=== PATIENT | male | born 1945 | race Caucasian/White ===

== ENCOUNTER → 2022-04-29 | Day surgery (SDC) | payer OTHER, MEDICARE ==
[~2022-04-29] MED LIST: Ketamine 200 MG/20 ML MDV ONE; Propofol 200 MG/20 ML SDV ONE; fentaNYL 50 MCG/ML SDV ONE
[2022-04-29] MEDS: Lactated Ringers 1,000 ML IV SCH (08:31)
== END ==
LOC: CC.SDS 08:02
PROVIDERS: ATTEND Family Medicine
DX: Z12.11 Encounter for screening for malignant neoplasm of colon (principal); D12.3 Benign neoplasm of transverse colon; D12.0 Benign neoplasm of cecum; D12.5 Benign neoplasm of sigmoid colon; D12.7 Benign neoplasm of rectosigmoid junction; K57.30 Diverticulosis of large intestine without perforation or abscess without bleeding; N40.0 Benign prostatic hyperplasia without lower urinary tract symptoms; E78.5 Hyperlipidemia, unspecified; I10 Essential (primary) hypertension; E66.9 Obesity, unspecified; Z88.5 Allergy status to narcotic agent; Z86.010 Personal history of colon polyps; Z80.0 Family history of malignant neoplasm of digestive organs
CPT/HCPCS: 00812; 88305; J2704; J3010; J7120

== ENCOUNTER → 2023-01-06 | Day surgery (SDC) | payer OTHER, MEDICARE ==
[2023-01-06] MEDS: Lactated Ringers 1,000 ML IV SCH (07:42)
== END ==
LOC: CC.SDS 07:16
PROVIDERS: ATTEND Family Medicine
DX: Z12.11 Encounter for screening for malignant neoplasm of colon (principal); D12.2 Benign neoplasm of ascending colon; D12.3 Benign neoplasm of transverse colon; D12.5 Benign neoplasm of sigmoid colon; K57.30 Diverticulosis of large intestine without perforation or abscess without bleeding; N40.0 Benign prostatic hyperplasia without lower urinary tract symptoms; M19.90 Unspecified osteoarthritis, unspecified site; I10 Essential (primary) hypertension; E78.00 Pure hypercholesterolemia, unspecified; G62.9 Polyneuropathy, unspecified; Z88.5 Allergy status to narcotic agent; Z79.52 Long term (current) use of systemic steroids; Z79.899 Other long term (current) drug therapy
CPT/HCPCS: 00811; 88305; 99100; J2704; J3010; J3490; J7120

== ENCOUNTER → 2023-06-29 | Day surgery (SDC) | payer OTHER, MEDICARE ==
[~2023-06-29] MED LIST changes: -Ketamine 200 MG/20 ML MDV ONE; +Ketorolac 30 MG/ML SDV ONE; +Lactated Ringers 1,000 ML IV SCH; +Lidocaine 0.5% 50 ML SDV ONE; +Lidocaine 1% 30 ML SDV INJECT ONE; +Midazolam 1 MG/ML 2 ML SDV ONE
== END ==
LOC: CC.SDS 09:28
PROVIDERS: ATTEND Surgery
DX: G56.01 Carpal tunnel syndrome, right upper limb (principal); E78.00 Pure hypercholesterolemia, unspecified; I10 Essential (primary) hypertension; G62.9 Polyneuropathy, unspecified; Z79.899 Other long term (current) drug therapy; Z98.890 Other specified postprocedural states; Z88.5 Allergy status to narcotic agent
CPT/HCPCS: J1885; J2250; J2704; J3010; J3490

== ENCOUNTER 2025-04-30 11:15 | Day surgery (SDC) | payer MEDICARE, OTHER ==
[2025-04-30] MEDS: Lactated Ringers 1,000 ML IV SCH (11:21)
== END 2025-04-30 13:20 | disposition home or self-care (01) ==
LOC: CC.SDS 11:15
PROVIDERS: ATTEND Family Medicine
DX: D12.3 Benign neoplasm of transverse colon (principal); K57.30 Diverticulosis of large intestine without perforation or abscess without bleeding; E78.5 Hyperlipidemia, unspecified; I10 Essential (primary) hypertension; Z88.5 Allergy status to narcotic agent; Z79.899 Other long term (current) drug therapy
CPT/HCPCS: 00811; 88305; 99100; J7120